=== PATIENT | female | born 1950 | race Caucasian/White ===

== ENCOUNTER 2018-02-18 08:03 | Emergency (ER) | payer MEDICARE, OTHER ==
[2015-04-09 11:20] VITALS: BP 127/60
--- NOTE | 2018-02-18 08:44 | ED Physician Documentation ---
Fall - HISTORIAN Historian: patient - HPI Chief Complaint: Fall Onset: just prior to arrival Where: home Context: tripped (outside in garden) r: moderate Associated Symptoms:: no loss of consciousness Injury to Left Extremity: ankle, foot Further Comments: yes (67 year old female patient presents with left foot pain after tripping in her rock garden. Unable to bear weight on left foot.) - ROS CONST: no problems NEURO: denies: dizziness, anxiety, depression, other MS/SKIN/LYMPH: denies: weakness, numbness, neck pain, back pain, ankle swelling , leg swelling, rash, other EYES/ENT: none CVS/RESP: none GI/: denies: problems urinating, nausea, vomiting, other - PAST HX Past History: other (hypothyroidism) Allergies/Adverse Reactions: Allergies Allergy/AdvReac Type Severity Reaction Status Date / Time propoxyphene HCl AdvReac Nausea/Vomi Verified 04/07/14 23:58 [From Darvon] ting Home Medications: Ambulatory Orders Medication Instructions Recorded Levothyroxine Sodium [Synthroid] 100 mcg PO 0700 04/07/14 Progesterone, Micronized 100 mg PO HS av 03/09/15 [Progesterone] - SOCIAL HX Smoking History: non-smoker Alcohol Use: other (history of abuse) - FAMILY HX Family History: denies: none - VITAL SIGNS Vital Signs: Vital Signs Temp Pulse Resp BP Pulse Ox 127/60 04/09/15 11:11 - REVIEWED ASSESSMENTS Nursing Assessment Reviewed: Yes Vitals Reviewed: Yes Progress - Progress Progress: Patient reports she is a recovering alcoholic, does not want to narcotic pain medication. Placed in walking boot. Gait steady. Appointment made for Thursday with LACEY at 2:00PM. ED Results Lab/Radiology - Radiology Radiology Impressions: Examination: Plain film left ankle History: LEFT ANKLE, PAIN AFTER FALL TODAY (Hx) Findings: 3 views of the left ankle demonstrates lucency involving the base of the 5th metatarsal. Generalized osteopenia. No other fracture or dislocation. Talar dome is intact. Calcaneal spurs. No soft tissue swelling. No joint effusion. Impression: Fracture base 5th metatarsal. Osteopenia and degenerative changes. Electronically signed on February 18, 2018 8:47:28 AM CDT by: Henrique Burt Examination: Plain film left foot History: LEFT FOOT, PAIN IN LEFT FOOT AFTER FALL TODAY, 3-5TH METATARSALS (Hx) Findings: 3 views of the left foot demonstrates generalized osteopenia. Lucency involving the base of the 5th metatarsal. Articular degenerative changes. Hallux valgus deformity 1st digit. Calcaneal spurs. No soft tissue swelling. No joint effusion. Impression: Fracture base 5th metatarsal. Osteopenia and degenerative changes. Electronically signed on February 18, 2018 8:49:11 AM CDT by: Henrique Burt - Orders Orders: ED Orders Category Date Time Status ANKLE 3 VIEWS OR MORE [RAD] Stat Exams 02/18/18 Ordered FOOT 3 VIEWS OR MORE [RAD] Stat Exams 02/18/18 Ordered Fall Physical Exam - Physical Exam General Appearance: mild distress Head: non-tender, no swelling, no obvious injury Resp/CVS: chest non-tender, no ecchymosis, breath sounds nml, no resp. distress , heart sounds nml Abdomen: soft, no organomegaly, normal bowel sounds, no abdominal bruit, no distension Neuro: oriented x3, motor nml, mood/affect nml, bottle and glass inspector nml Back: normal inspection, no CVA tenderness Extremities: atraumatic, pelvis stable, hips non-tender, no pedal edema, nml ROM , nml color/temp, unable to bear weight (on left foot), other (left foot with large bunion of 1st digit; tenderness along 5th metatarsal, mild edema noted in lateral left foot. ) Joint: unable to bear weight (left foot) Discharge Clincal Impression: Fracture of 5th metatarsal Qualifiers: Encounter type: initial encounter Fracture type: closed Physeal involvement: unspecified Laterality: left Qualified Code(s): S92.352A - Displaced fracture of fifth metatarsal bone, left foot, initial encounter for closed fracture Fall at home Qualifiers: Encounter type: initial encounter Qualified Code(s): W19.XXXA - Unspecified fall, initial encounter Referrals: Lizbeth Gill MD [Primary Care Provider] - 2 Days Additional Instructions: No weight bearing on left foot without walking boot in place Rest Ice Elevation Call orthopedics for a follow up appointment in the next 2-3 days. Take your disc and report to the appointment. You may use Tylenol 650-1000mg every 4 hours as needed for pain. Limit dose to 4G per day. NO ibuprofen, aleve or naproxen until seen by ortho Return to the ER right away if: You cannot wiggle the toes The toes are pale or blue You are short of breath or have significant pain Condition: Stable Disposition: 01 HOME, SELF-CARE Decision to Admit: NO Decision Time: 08:58
[2018-02-18] MEDS ORDERED: KETOROLAC TROMETHAMINE 60 MG/2 ML VIAL IM ONE (08:50)
--- NOTE | 2018-02-18 17:49 | Diagnostic Imaging Report ---
DARÍO OZUNA (MELT SUPERINTENDANT) - ER [facility] [address] [id number] Report Submission Date: February 18, 2018 8:49:11 AM CDT Patient Study Name: SEBASTIÁN GALLO Date: February 18, 2018 8:24:09 AM CDT Modality Type: DX Gender: F Description: LOWER EXTREMITY : 50 Institution: [facility] Physician: DARÍO OZUNA (MELT SUPERINTENDANT) - ER Examination: Plain film left foot History: LEFT FOOT, PAIN IN LEFT FOOT AFTER FALL TODAY, 3-5TH METATARSALS (Hx) Findings: 3 views of the left foot demonstrates generalized osteopenia. Lucency involving the base of the 5th metatarsal. Articular degenerative changes. Hallux valgus deformity 1st digit. Calcaneal spurs. No soft tissue swelling. No joint effusion. Impression: Fracture base 5th metatarsal. Osteopenia and degenerative changes. Electronically signed on February 18, 2018 8:49:11 AM CDT by: Henrique HACKETT
--- NOTE | 2018-02-18 17:49 | Diagnostic Imaging Report ---
DARÍO OZUNA (SOIL CONSERVATION AIDE) - ER [facility] [address] [address] Report Submission Date: February 18, 2018 8:47:28 AM CDT Patient Study Name: SEBASTIÁN GALLO Date: February 18, 2018 8:17:21 AM CDT Modality Type: DX Gender: F Description: LOWER EXTREMITY : 50 Institution: [facility] Physician: DARÍO OZUNA (SOIL CONSERVATION AIDE) - ER Examination: Plain film left ankle History: LEFT ANKLE, PAIN AFTER FALL TODAY (Hx) Findings: 3 views of the left ankle demonstrates lucency involving the base of the 5th metatarsal. Generalized osteopenia. No other fracture or dislocation. Talar dome is intact. Calcaneal spurs. No soft tissue swelling. No joint effusion. Impression: Fracture base 5th metatarsal. Osteopenia and degenerative changes. Electronically signed on February 18, 2018 8:47:28 AM CDT by: Henrique HACKETT
== END 2018-02-18 09:38 | disposition home or self-care (01) ==
LOC: ED 08:03
DX: S92.352A Displaced fracture of fifth metatarsal bone, left foot, initial encounter for closed fracture (principal); W19.XXXA Unspecified fall, initial encounter; Y92.9 Unspecified place or not applicable; Y93.H2 Activity, gardening and landscaping; Y99.9 Unspecified external cause status
CPT/HCPCS: 73610; 73630; J1885; L4360; 96372; 99284